=== PATIENT | female | born 1955 | race American Indian/Alaskan Native ===

== ENCOUNTER 2017-08-12 12:03 | Outpatient (CLI) | payer OTHER, MEDICARE ==
[2017-08-12] MEDS ORDERED: NACL ONE (12:57)
--- NOTE | 2017-08-12 13:25 | Cat Scan Report ---
CTA chest: History: Shortness of breath. Findings: No evidence of aneurysm or pulmonary embolism. Dilated pulmonary arteries. No pulmonary embolism. No pleural or pericardial effusion. Suspected dilated esophagus. Mild chronic fibrosis lower lobes bilaterally. No consolidation. Pleural thickening. No mass. Impression: No evidence of pulmonary embolism. Evidence of pulmonary arterial hypertension. Chronic fibrotic lung changes bilaterally as detailed above. Dilated esophagus. Further evaluation may be recommended.
== END 2017-08-12 12:04 | disposition home or self-care (01) ==
LOC: CT 12:03
PROVIDERS: ATTEND Specialist
DX: I27.21 Secondary pulmonary arterial hypertension (principal); I28.1 Aneurysm of pulmonary artery; J84.10 Pulmonary fibrosis, unspecified; K22.8 Other specified diseases of esophagus; R06.02 Shortness of breath; R09.1 Pleurisy
CPT/HCPCS: 36415; 71275; 82565; 84520; Q9967

== ENCOUNTER 2019-09-20 14:10 | Outpatient (CLI) | payer OTHER, MEDICARE ==
--- NOTE | 2019-09-20 14:45 | XRay Report ---
CHEST 2 VIEWS INDICATION: COMMUNITY ACQUIRED PNEUMONIA. COMPARISON: None FINDINGS: Support devices: None. Heart: Within normal limits. Lungs/pleura: No acute air space or interstitial disease. No pneumothorax. Mild chronic interstitial changes are noted in both lungs. Additional findings: None. IMPRESSION: No acute findings. Mild chronic interstitial changes in both lungs. Signer Name: Ke Hanna Jr, MD Signed: 09/20/2019 2:41 PM Workstation Name: [id number]
== END 2019-09-20 14:11 | disposition home or self-care (01) ==
LOC: XRAY 14:10
PROVIDERS: ATTEND Nurse Practitioner Family
DX: J18.9 Pneumonia, unspecified organism (principal); J84.89 Other specified interstitial pulmonary diseases
CPT/HCPCS: 71046